=== PATIENT | female | born 1990 | race Caucasian/White ===

== ENCOUNTER 2016-12-07 22:40 | Emergency (ER) | payer SELFPAY | END 2016-12-07 23:30 | disposition left against medical advice (07) | LOC: DL.ED 22:40 | DX: Z53.21 Procedure and treatment not carried out due to patient leaving prior to being seen by health care provider (principal) ==

== ENCOUNTER 2017-01-18 01:50 | Emergency (ER) | payer SELFPAY ==
[2017-01-18 01:59] VITALS: BP 110/65
[2017-01-18] MEDS ORDERED: methylPREDNISolone Sodium Succinate 125 MG/2 ML SDV IM ONE (02:08)
[2017-01-18] MEDS ORDERED: diphenhydrAMINE 50 MG/ML SDV IM ONE (02:09)
--- NOTE | 2017-01-18 02:15 | EDM.PDOC ---
ED HPI GENERAL MEDICAL PROBLEM - General Chief Complaint: Allergic Reaction Stated Complaint: ALLERGIC REACTION Time Seen by Provider: 01/18/17 02:04 Source of Information: Reports: Patient History Limitations: Reports: No Limitations - History of Present Illness INITIAL COMMENTS - FREE TEXT/NARRATIVE: onset itchy hives yesterday took nothing and not going away. think got bit by something. 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: - Infectious Disease History Infectious Disease History: Reports: None - Past Surgical History Female Surgical History: Reports: Section, D&C Social & Family History - Family History Family Medical History: Noncontributory - Tobacco Use Smoking Status *Q: Current Every Day Smoker Years of Tobacco use: 8 Packs/Tins Daily: 0.5 Used Tobacco, but Quit: No Month Tobacco Last Used: january 2013 Second Hand Smoke Exposure: Yes - Caffeine Use Caffeine Use: Reports: Coffee, Energy Drinks, Soda - Alcohol Use Days Per Week of Alcohol Use: 7 Number of Drinks Per Day: 2 Total Drinks Per Week: 14 - Recreational Drug Use Recreational Drug Use: Yes Drug Use in Last 12 Months: Yes Recreational Drug Type: Reports: Marijuana/Hashish Recreational Drug Use Frequency: Rarely - Living Situation & Occupation Living situation: Reports: with Significant Other Occupation: Employed ED ROS ALLERGIC REACTION - Review of Systems Review Of Systems: ROS reveals no pertinent complaints other than HPI. ED EXAM GENERAL NO PERIP PULSE - Physical Exam Exam: See Below Exam Limited By: No Limitations General Appearance: Alert, WD/WN, Mild Distress, Other (itch) Ears: Hearing Grossly Normal Throat/Mouth: Normal Voice, No Airway Compromise Head: Atraumatic Neck: Non-Tender, Full Range of Motion Respiratory/Chest: No Respiratory Distress Cardiovascular: Regular Rate, Rhythm GI/Abdominal: Soft, Non-Tender Extremities: Other (right forearm several spots of hives without s/s cellulitis) Psychiatric: Normal Affect, Normal Mood Skin Exam: Warm, Dry, Normal Color Lymphatic: No Adenopathy Course - Vital Signs Last Recorded V/S: Last Vital Signs Temp 36.4 C 07/31/17 01:57 Pulse 97 01/18/17 01:57 Resp 20 01/18/17 01:57 BP 110/65 01/18/17 01:57 Pulse Ox 99 01/18/17 01:57 - Orders/Labs/Meds Orders: Active Orders 24 hr Category Date Time Status diphenhydrAMINE [Benadryl] Med 01/18/17 02:09 Once 50 mg IM ONETIME ONE Meds: Medications Discontinued Medications Generic Name Dose Route Start Last Admin Trade Name Isabel PRN Reason Stop Dose Admin Methylprednisolone Sodium Succinate 125 mg 01/18/17 02:08 Solu-Medrol IM 01/18/17 02:09 ONETIME ONE Departure - Departure Time of Disposition: 02:13 Disposition: Home, Self-Care 01 Condition: Good Clinical Impression: Hives of unknown origin - Discharge Information Instructions: Hives, [id number] Forms: ED Department Discharge Additional Instructions: 1) don't scratch 2) take benadyl 25mg twice daily for itchy hives 3) follow up at clinic for DERMATOLOGY REFERRAL if not better in 3 days rx given; medrol dospak - My Orders Last 24 Hours: My Active Orders 01/18/17 02:09 diphenhydrAMINE [Benadryl] 50 mg IM ONETIME ONE - Assessment/Plan Last 24 Hours: My Active Orders 01/18/17 02:09 diphenhydrAMINE [Benadryl] 50 mg IM ONETIME ONE
== END 2017-01-18 02:28 | disposition home or self-care (01) ==
LOC: DL.ED 01:50
DX: L50.9 Urticaria, unspecified (principal); F17.210 Nicotine dependence, cigarettes, uncomplicated; Z98.890 Other specified postprocedural states
CPT/HCPCS: 96372; 99282; J1200; J2930

== ENCOUNTER 2017-07-10 22:56 | Emergency (ER) | payer MEDICAID ==
[2017-07-10] MEDS ORDERED: Lidocaine 2% Viscous Solution 15 ML Cup PO ONE (22:57)
[2017-07-10] MEDS ORDERED: Nystatin Susp 100,000 Unit/ML 5 ML UD Cup PO ONE (22:57)
[2017-07-10 23:07] VITALS: BP 122/79
[2017-07-10] MEDS ORDERED: LORazepam 1 MG Tab PO ONE (23:46)
[2017-07-10] MEDS ORDERED: Nystatin Susp 100,000 Unit/ML 5 ML UD Cup ONE (23:51)
[2017-07-10] MEDS ORDERED: Lidocaine 2% Viscous Solution 15 ML Cup ONE (23:51)
--- NOTE | 2017-07-10 23:53 | EDM.PDOC ---
ED HPI GENERAL MEDICAL PROBLEM - General Chief Complaint: ENT Problem Stated Complaint: ROOF OF MOUTH PAIN [id number] Time Seen by Provider: 07/10/17 23:49 Source of Information: Reports: Patient History Limitations: Reports: No Limitations - History of Present Illness INITIAL COMMENTS - FREE TEXT/NARRATIVE: having dental work done and got placed on ABX just finished and now has painful lumps on roof of mouth Oral/Mouth Pain Score (Numeric/FACES): 10 - Related Data Allergies Allergy/AdvReac Type Severity Reaction Status Date / Time No Known Allergies Allergy Verified 07/10/17 23:02 Home Meds: Home Meds . 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 History: Reports: None Neurological History: Reports: None Psychiatric History: Reports: None Endocrine/Metabolic History: Reports: None Hematologic History: Reports: None Immunologic History: Reports: None Oncologic (Cancer) History: Reports: None Dermatologic History: Reports: None - Infectious Disease History Infectious Disease History: Reports: None - Past Surgical History Female Surgical History: Reports: Section, D&C Social & Family History - Family History Family Medical History: Noncontributory - Tobacco Use Smoking Status *Q: Heavy Tobacco Smoker Years of Tobacco use: 8 Packs/Tins Daily: 1 Used Tobacco, but Quit: No Month Tobacco Last Used: january 2013 Second Hand Smoke Exposure: Yes - Caffeine Use Caffeine Use: Reports: Coffee, Energy Drinks, Soda - Alcohol Use Days Per Week of Alcohol Use: 7 Number of Drinks Per Day: 2 Total Drinks Per Week: 14 - Recreational Drug Use Recreational Drug Use: Yes Drug Use in Last 12 Months: Yes Recreational Drug Type: Reports: Marijuana/Hashish Recreational Drug Use Frequency: Socially - Living Situation & Occupation Living situation: Reports: with Significant Other Occupation: Employed ED ROS ENT - Review of Systems Review Of Systems: ROS reveals no pertinent complaints other than HPI. ED EXAM, ENT - Physical Exam Exam: See Below Exam Limited By: No Limitations General Appearance: Alert, WD/WN, Mild Distress, Moderate Distress, Other ( tearful) Ears: Hearing Grossly Normal Mouth/Throat: Other (aphthous ulcers roof of mouth.) Head: Atraumatic Neck: Non-Tender, Full Range of Motion Respiratory/Chest: No Respiratory Distress Cardiovascular: Regular Rate, Rhythm GI/Abdominal: Soft, Non-Tender Neurological: Alert, Oriented, Normal Cognition, Normal Gait, No Motor/Sensory Deficits Psychiatric: Tearful Skin: Warm, Dry, Normal Color Lymphatic: No Adenopathy Course - Vital Signs Last Recorded V/S: Last Vital Signs Temp 36.4 C 07/10/17 23:02 Pulse 85 07/10/17 23:02 Resp 18 07/10/17 23:02 BP 122/79 07/10/17 23:02 Pulse Ox 100 07/10/17 23:02 - Orders/Labs/Meds Meds: Medications Discontinued Medications Generic Name Dose Route Start Last Admin Trade Name Freq PRN Reason Stop Dose Admin Lorazepam 1 mg 07/10/17 23:46 Ativan PO 07/10/17 23:47 ONETIME ONE Departure - Departure Time of Disposition: 23:51 Disposition: Home, Self-Care 01 Condition: Good Clinical Impression: Aphthous stomatitis - Discharge Information Instructions: Stomatitis, [id number] Additional Instructions: 1) soft diet 2) recheck as needed rx togo; lido viscous apply with Q-tip rx given; nystatin 5ml swish tid x 5 days
== END 2017-07-10 23:59 | disposition home or self-care (01) ==
LOC: DL.ED 22:56
DX: K12.0 Recurrent oral aphthae (principal); F17.210 Nicotine dependence, cigarettes, uncomplicated
CPT/HCPCS: 99283; A9270

== ENCOUNTER 2017-12-13 10:15 | Emergency (ER) | payer MEDICAID ==
[2017-12-13 10:45] VITALS: BP 119/71
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
== END 2017-12-13 11:17 | disposition home or self-care (01) ==
LOC: DL.ED 10:15
DX: L55.1 Sunburn of second degree (principal); F17.210 Nicotine dependence, cigarettes, uncomplicated
CPT/HCPCS: 99282

== ENCOUNTER 2018-07-13 11:22 | Emergency (ER) | payer MEDICAID ==
[2018-07-13 11:29] VITALS: BP 121/71
== END 2018-07-13 11:39 | disposition left against medical advice (07) ==
LOC: DL.ED 11:22
DX: Z53.21 Procedure and treatment not carried out due to patient leaving prior to being seen by health care provider (principal)

== ENCOUNTER 2018-09-23 14:26 | Emergency (ER) | payer BC, MEDICAID ==
[2018-09-23 14:33] VITALS: BP 122/75
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
== END 2018-09-23 15:36 | disposition home or self-care (01) ==
LOC: DL.ED 14:26
DX: S63.642A Sprain of metacarpophalangeal joint of left thumb, initial encounter (principal); Y04.2XXA Assault by strike against or bumped into by another person, initial encounter; Z88.2 Allergy status to sulfonamides; Z88.6 Allergy status to analgesic agent
CPT/HCPCS: 73130-LT; 99283-25

== ENCOUNTER 2020-08-12 09:11 | Emergency (ER) | payer MEDICAID | END 2020-08-12 09:42 | disposition left against medical advice (07) | LOC: DL.ED 09:11 | DX: Z53.21 Procedure and treatment not carried out due to patient leaving prior to being seen by health care provider (principal) ==

== ENCOUNTER 2021-04-11 19:53 | Emergency (ER) | payer SELFPAY ==
--- NOTE | 2021-04-11 21:38 | EDM.PDOC ---
ED HPI GENERAL MEDICAL PROBLEM - General Chief Complaint: Respiratory Problem Stated Complaint: 97.1*, COUGHING UP BLOOD, CONGESTED, THROAT HURTS. Time Seen by Provider: 04/11/21 20:15 Source of Information: Reports: Patient History Limitations: Reports: No Limitations - History of Present Illness INITIAL COMMENTS - FREE TEXT/NARRATIVE: ED with hx congestion and cough x 5 days, no fever, tonight coughing episode and coughed up large amount that had some blood streaks. No shortness of breath, no loss of taste or smell. 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 Anterior Chest Pain Score (Numeric/FACES): 1 - Related Data Allergies Allergy/AdvReac Type Severity Reaction Status Date / Time hydrocodone Allergy Itching Verified 01/28/19 01:11 sulfamethoxazole Allergy Nausea and Verified 01/28/19 01:11 [From Bactrim] Vomiting trimethoprim [From Bactrim] Allergy Nausea and Verified 01/28/19 01:11 Vomiting Home Meds: Home Meds Ibuprofen 800 mg PO ATDISCHARGE PRN 09/23/18 [History] metFORMIN HCl [Metformin HCl] 1,000 mg PO DAILY 09/23/18 [History] Past Medical History - Past Health History Medical/Surgical History: Denies Medical/Surgical History HEENT History: Reports: None Cardiovascular History: Reports: None Respiratory History: Reports: None Gastrointestinal History: Reports: None Genitourinary History: Reports: None 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: Reports: None Neurological History: Reports: Migraines Other Neuro History: recent migraine within past 4 days Psychiatric History: Reports: None Endocrine/Metabolic History: Reports: None Hematologic History: Reports: None Immunologic History: Reports: None Oncologic (Cancer) History: Reports: None Dermatologic History: Reports: None, Other (See Below) Other Dermatologic History: abcess on buttock - Infectious Disease History Infectious Disease History: Reports: None - Past Surgical History HEENT Surgical History: Reports: Oral Surgery Other HEENT Surgeries/Procedures: wisdom teeth removal 6 months Cardiovascular Surgical History: Reports: None Female Surgical History: Reports: Section, D&C Other Female Surgeries/Procedures: Taking fertility treatments Musculoskeletal Surgical History: Reports: None Social & Family History - Family History Family Medical History: No Pertinent Family History - Tobacco Use Tobacco Use Status *Q: Current Every Day Tobacco User Years of Tobacco use: 22 Packs/Tins Daily: 0.5 - Caffeine Use Caffeine Use: Reports: Energy Drinks, Soda Other Caffeine Use: 2-3 daily of both - Recreational Drug Use Recreational Drug Use: No - Living Situation & Occupation Living situation: Reports: with Significant Other Occupation: Employed ED ROS GENERAL - Review of Systems Review Of Systems: Comprehensive ROS is negative, except as noted in HPI. ED EXAM, GENERAL - Physical Exam Exam: See Below Exam Limited By: No Limitations General Appearance: Alert, No Apparent Distress Eye Exam: Bilateral Eye: EOMI, PERRL Ears: Normal External Exam, Hearing Grossly Normal, Normal TMs Nose: Normal Inspection Throat/Mouth: Normal Inspection Head: Atraumatic, Normocephalic Neck: Normal Inspection Respiratory/Chest: No Respiratory Distress, Lungs Clear Cardiovascular: Normal Peripheral Pulses, Regular Rate, Rhythm GI/Abdominal: Normal Bowel Sounds, Soft Extremities: Normal Inspection Neurological: Alert, Oriented Psychiatric: Normal Affect Skin Exam: Warm, Dry, Intact, Normal Color Course - Vital Signs Last Recorded V/S: Last Vital Signs Temp 96.8 F L 04/11/21 21:45 Pulse 72 04/11/21 21:45 Resp 14 04/11/21 21:45 BP 112/72 04/11/21 21:45 Pulse Ox 98 04/11/21 21:45 - Orders/Labs/Meds Labs: Laboratory Tests 04/11/21 Range/Units 20:07 SARS-CoV-2 RNA (HARIKA) Negative (NEGATIVE) Departure - Departure Time of Disposition: 21:35 Disposition: Home, Self-Care 01 Condition: Good Clinical Impression: URI (upper respiratory infection) Qualifiers: URI type: unspecified viral URI Qualified Code(s): J06.9 - Acute upper respiratory infection, unspecified - Discharge Information *PRESCRIPTION DRUG MONITORING PROGRAM REVIEWED*: No *COPY OF PRESCRIPTION DRUG MONITORING REPORT IN PATIENT KATHY: No Instructions: Viral Respiratory Infection, [id number], Acute Bronchitis, Adult, [id number] Referrals: Coby Courtney MD [Primary Care Provider] - Forms: ED Department Discharge Additional Instructions: increase fluids tylenol or ibuprofen , may alternate every 4 hours as needed for fever/ discomfort rest humidifier follow up next week if symptoms worsen or not improving muccinex/robitussin to thin mucus per label instructions Sepsis Event Note (ED) - Evaluation Sepsis Screening Result: No Definite Risk
[2021-04-11 21:46] VITALS: BP 112/72; PULSE 72
== END 2021-04-11 21:46 | disposition home or self-care (01) ==
LOC: DL.ED 19:53
DX: J06.9 Acute upper respiratory infection, unspecified (principal); Z88.5 Allergy status to narcotic agent; Z88.2 Allergy status to sulfonamides; Z72.0 Tobacco use; Z20.822 Contact with and (suspected) exposure to COVID-19
CPT/HCPCS: 87081; 87430; 99283; U0002

== ENCOUNTER 2023-08-05 15:56 | Emergency (ER) | payer MEDICAID | END 2023-08-05 18:30 | LOC: DL.ED 15:56 | DX: Z53.21 Procedure and treatment not carried out due to patient leaving prior to being seen by health care provider (principal) | CPT/HCPCS: 76815 ==

== ENCOUNTER 2024-02-03 09:44 | Inpatient (IN) | payer MEDICAID ==
[2024-02-03] MEDS ORDERED: Tranexamic Acid 1,000 MG in Sodium Chloride 0.9% 100 ML IV PRN (10:00)
[2024-02-03] MEDS ORDERED: Methylergonovine 0.2 MG/1 ML Amp IM PRN (10:00)
[2024-02-03] MEDS ORDERED: Carboprost Tromethamine 250 MCG/1 ML Amp IM PRN (10:00)
[2024-02-03] MEDS ORDERED: Misoprostol 400 MCG (4 X 100 MCG TAB) RECTAL PRN (10:00)
[2024-02-03] MEDS ORDERED: ceFAZolin 2 GM Vial IVPUSH ONE (10:00)
[2024-02-03] MEDS ORDERED: ePHEDrine 50 MG/ML SDV IVPUSH PRN (10:00)
[2024-02-03] MEDS ORDERED: Naloxone 2 MG/2 ML Syringe IVPUSH PRN (10:00)
[2024-02-03] MEDS ORDERED: diphenhydrAMINE 50 MG/ML SDV IVPUSH PRN (10:00)
[2024-02-03] MEDS ORDERED: Ondansetron 4 MG/2 ML SDV IVPUSH PRN (10:00)
[2024-02-03 10:17] LABS: HEMATOCRIT 36.8 % (37.0-47.0); HEMOGLOBIN 12.4 g/dL (12.0-16.0); MEAN CORPUSCULAR HEMOGLOBIN 29.3 pg (27.0-34.0); MEAN CORPUSCULAR HGB CONC 33.7 g/dL (33.0-35.0); RED BLOOD CELL COUNT 4.23 10^6/uL (4.2-5.4); WHITE BLOOD CELL COUNT,WBC 12.4 10^3/uL (5.0-10.0)
[2024-02-03] MEDS: Lactated Ringers 1,000 ML IV SCH (10:51)
[2024-02-03] MEDS ORDERED: ceFAZolin 2 GM Vial ONE (11:26)
[2024-02-03] MEDS ORDERED: Dexamethasone 4 MG/ML SDV ONE (11:26)
[2024-02-03] MEDS ORDERED: Ondansetron 4 MG/2 ML SDV ONE (11:26)
[2024-02-03] MEDS ORDERED: Succinylcholine 200 MG/10 ML MDV ONE (11:26)
[2024-02-03] MEDS ORDERED: Oxytocin 10 Units/1 ML SDV ONE (11:26)
[2024-02-03] MEDS: Oxytocin/Normal Saline 30 UNIT/500 ML BAG IV SCH (12:50)
[2024-02-03] MEDS: Simethicone 80 MG Tab.Chew PO SCH (15:11)
[2024-02-03] MEDS: Prenatal Multivitamin with Calcium/Folic Acid/Iron Tab PO SCH (15:11)
[2024-02-03] MEDS: Clindamycin in 0.9 % Sod Chlor 900 MG in Premix Bag 1 BAG IV SCH (16:11)
[2024-02-03] MEDS: Metoclopramide 10 MG/2 ML SDV IVPUSH ONE (17:21)
[2024-02-03] MEDS: Simethicone 80 MG Tab.Chew ONE (17:26)
[2024-02-03] MEDS: Ketorolac 30 MG/ML SDV IVPUSH SCH (18:15)
[2024-02-03] MEDS: Acetaminophen 325 MG Tab PO PRN (22:32)
[2024-02-04] MEDS: Promethazine 25 MG/ML SDV IM PRN (00:55)
[2024-02-04 07:18] LABS: HEMATOCRIT 30.3 % (37.0-47.0); MEAN CORPUSCULAR HEMOGLOBIN 29.6 pg (27.0-34.0); MEAN CORPUSCULAR VOLUME 89.6 fL (80-100); RED BLOOD CELL COUNT 3.38 10^6/uL (4.2-5.4); WHITE BLOOD CELL COUNT,WBC 14.6 10^3/uL (5.0-10.0)
[2024-02-04] MEDS: Docusate Sodium 100 MG Cap PO PRN (08:43)
[2024-02-04] MEDS ORDERED: Carboprost Tromethamine 250 MCG/1 ML Amp IM PRN (11:30)
[2024-02-04] MEDS: Docusate Sodium 100 MG Cap ONE (11:31)
[2024-02-04] MEDS ORDERED: diphenhydrAMINE 50 MG/ML SDV IVPUSH PRN (11:31)
[2024-02-04] MEDS: Simethicone 80 MG Tab.Chew ONE (11:31)
[2024-02-04] MEDS ORDERED: Methylergonovine 0.2 MG/1 ML Amp IM PRN (11:32)
[2024-02-04] MEDS ORDERED: ePHEDrine 50 MG/ML SDV IVPUSH PRN (11:32)
[2024-02-04] MEDS ORDERED: Misoprostol 400 MCG (4 X 100 MCG TAB) RECTAL PRN (11:32)
[2024-02-04] MEDS ORDERED: Naloxone 2 MG/2 ML Syringe IVPUSH PRN (11:33)
[2024-02-04] MEDS ORDERED: Ondansetron 4 MG/2 ML SDV IVPUSH PRN (11:33)
[2024-02-04] MEDS ORDERED: Promethazine 25 MG/ML SDV IM PRN (11:34)
[2024-02-04] MEDS ORDERED: Tranexamic Acid 1,000 MG in Sodium Chloride 0.9% 100 ML IV PRN (11:34)
[2024-02-04] MEDS ORDERED: Oxytocin/Normal Saline 30 UNIT/500 ML BAG IV SCH (11:45)
[2024-02-04] MEDS ORDERED: Lactated Ringers 1,000 ML IV SCH (11:45)
[2024-02-04] MEDS: Acetaminophen/oxyCODONE 325-5 MG Tab PO PRN ×2 (11:50→15:47)
[2024-02-04] MEDS: Simethicone 80 MG Tab.Chew PO SCH (11:50)
[2024-02-04] MEDS: Ibuprofen 800 MG Tab PO SCH (15:18)
[2024-02-04] MEDS: Acetaminophen 325 MG Tab PO PRN (20:02)
[2024-02-04] MEDS: Lidocaine 1% 30 ML SDV INJECT ONE (21:43)
[2024-02-05] MEDS: Docusate Sodium 100 MG Cap PO PRN (08:04)
[2024-02-05] MEDS ORDERED: Prenatal Multivitamin with Calcium/Folic Acid/Iron Tab PO SCH (09:00)
[2024-02-05 09:51] VITALS: BP 97/53; PULSE 64
[2024-02-05] MEDS ORDERED: Dexamethasone 4 MG/ML SDV IV ONE (11:04)
[2024-02-05] MEDS ORDERED: Morphine PF 10 MG/10 ML SDV EPIDUR ONE (11:04)
[2024-02-05] MEDS ORDERED: Ondansetron 4 MG/2 ML SDV IV ONE (11:04)
[2024-02-05] MEDS ORDERED: Ketorolac 30 MG/ML SDV IVPUSH ONE (11:04)
[2024-02-05] MEDS ORDERED: Ropivacaine 100 ML EPIDUR ONE (11:04)
[2024-02-05] MEDS ORDERED: Oxytocin/Normal Saline 30 UNIT/500 ML BAG IV ONE (11:04)
[2024-02-05] MEDS ORDERED: Midazolam 1 MG/ML 2 ML SDV IV ONE (11:04)
== END 2024-02-05 11:05 | disposition home or self-care (01) | DRG 788 ==
LOC: DL.OB 09:44 → OBSVTOIN 12:22 → DL.OB 12:22
PROVIDERS: ADMIT Family Medicine; ATTEND Family Medicine
PROC: 10D00Z1 Extraction of Products of Conception, Low, Open Approach (ICD-10-PCS; principal; 2024-02-03 12:00)
DX: O34.211 Maternal care for low transverse scar from previous cesarean delivery (principal); Z37.0 Single live birth; Z3A.39 39 weeks gestation of pregnancy; O99.62 Diseases of the digestive system complicating childbirth; K04.7 Periapical abscess without sinus; O69.81X0 Labor and delivery complicated by cord around neck, without compression, not applicable or unspecified
CPT/HCPCS: 36415; 59025; 85027; 86850; 86900; 86901; A9270-GY; J0330; J1100; J1885; J2250; J2270; J2405; J2550; J2590; J2765; J2795; J3490; J7120

== ENCOUNTER 2024-12-09 22:54 | Inpatient (IN) | payer MEDICAID ==
[2024-12-09] MEDS: Lactated Ringers 1,000 ML IV SCH (23:45)
[2024-12-09 23:48] LABS: BASOPHILS PERCENT AUTO 0.2 % (0.0-1.0); EOSINOPHILS PERCENT AUTO 0.4 % (1.0-3.0); HEMATOCRIT 34.4 % (37.0-47.0); HEMOGLOBIN 12.3 g/dL (12.0-16.0); LYMPHOCYTES PERCENT AUTO 14.5 % (20.5-50.1); MEAN CORPUSCULAR HEMOGLOBIN 29.9 pg (27.0-34.0); MEAN CORPUSCULAR HGB CONC 35.8 g/dL (33.0-35.0); MEAN CORPUSCULAR VOLUME 83.5 fL (80-100); MONOCYTES PERCENT AUTO 6.2 % (2-8); NEUTROPHILS PERCENT AUTO 78.7 % (42.2-75.2); PLATELET COUNT,PLT 190 10^3/uL (150-450); RED BLOOD CELL COUNT 4.12 10^6/uL (4.2-5.4); WHITE BLOOD CELL COUNT,WBC 12.1 10^3/uL (5.0-10.0)
[2024-12-10] MEDS ORDERED: Lactated Ringers 1,000 ML IV SCH
[2024-12-10] MEDS ORDERED: Oxytocin/Normal Saline 30 UNIT/500 ML BAG IV SCH
[2024-12-10] MEDS ORDERED: Carboprost Tromethamine 250 MCG/1 ML Amp IM PRN
[2024-12-10] MEDS ORDERED: ePHEDrine 50 MG/ML SDV IVPUSH PRN
[2024-12-10] MEDS ORDERED: Methylergonovine 0.2 MG/1 ML Amp IM PRN
[2024-12-10] MEDS ORDERED: Ondansetron 4 MG/2 ML SDV IVPUSH PRN
[2024-12-10] MEDS ORDERED: Docusate Sodium 100 MG Cap PO PRN
[2024-12-10] MEDS ORDERED: Misoprostol 100 MCG Tab RECTAL PRN
[2024-12-10] MEDS ORDERED: diphenhydrAMINE 50 MG/ML SDV IVPUSH PRN
[2024-12-10] MEDS ORDERED: Tranexamic Acid 1,000 MG in Sodium Chloride 0.9% 100 ML IV PRN
[2024-12-10] MEDS ORDERED: Naloxone 2 MG/2 ML Syringe IVPUSH PRN
[2024-12-10 00:08] LABS: ALANINE AMINOTRANSFERASE,ALT 13 U/L (14-59); ALBUMIN 2.3 g/dL (3.4-5.0); ALKALINE PHOSPHATASE 113 U/L (46-116); ANION GAP 15.7 mEq/L (7-13); ASPARTATE AMNIOTRANSFERASE,AST 14 U/L (15-37); BILIRUBIN TOTAL 0.3 mg/dL (0.2-1.0); BLOOD UREA NITROGEN,BUN 11 mg/dL (7-18); BUN/CREATININE RATIO 14.5 (No establ ref range); CALCIUM 9.3 mg/dL (8.5-10.1); CARBON DIOXIDE,CO2 22 mmol/L (21-32); CHLORIDE,CL 106 mmol/L (98-107); CREATININE 0.76 mg/dL (0.55-1.02); GLUCOSE RANDOM 76 mg/dL (70-99); LIPASE 51 U/L (16-77); POTASSIUM,K 3.7 mmol/L (3.5-5.1); PROTEIN TOTAL,TP 6.5 g/dL (6.4-8.2); SODIUM,NA 140 mmol/L (136-145)
[2024-12-10 00:10] LABS: A/G RATIO 0.55; ESTIMATED GFR 105 mL/min (>=60)
[2024-12-10] MEDS ORDERED: Bupivacaine 0.25% 10 ML SDV ONE (00:26)
[2024-12-10] MEDS ORDERED: Phenylephrine 1% 10 MG/ML SDV ONE (00:33)
[2024-12-10] MEDS ORDERED: Sodium Chloride 0.9% 100 ML ONE (00:33)
[2024-12-10] MEDS ORDERED: Oxytocin/Normal Saline 30 UNIT/500 ML BAG ONE (00:35)
[2024-12-10] MEDS: ceFAZolin 2 GM Vial IVPUSH ONE (02:52)
[2024-12-10] MEDS: Ketorolac 30 MG/ML SDV IVPUSH SCH ×2 (03:09→07:56)
[2024-12-10 06:36] LABS: APPEARANCE,URINE SLIGHTLY CLOUDY (CLEAR); BILIRUBIN,URINE NEGATIVE (NEGATIVE); COLOR,URINE YELLOW (YELLOW); GLUCOSE,URINE NEGATIVE (NEGATIVE); KETONES,URINE 15 (NEGATIVE); LEUKOCYTE ESTERASE,URINE NEGATIVE (NEGATIVE); NITRITE,URINE NEGATIVE (NEGATIVE); OCCULT BLOOD,URINE MODERATE (NEGATIVE); PH,URINE 6.5 (5.0-9.0); PROTEIN,URINE 30 (NEGATIVE); UROBILINOGEN,URINE 0.2 mg/dL (0.2-1.0)
[2024-12-10 06:53] LABS: BACTERIA,URINE FEW /HPF (0-FEW/HPF); EPITHELIAL CELLS,URINE FEW /HPF (NOT SEEN); MUCUS,URINE MODERATE /LPF (NOT SEEN); RBC,URINE 75-100 /HPF (0-5); WBC,URINE 0-5 /HPF (0-5/HPF)
[2024-12-10] MEDS: Acetaminophen/oxyCODONE 325-5 MG Tab PO PRN ×2 (07:57→11:53)
[2024-12-10] MEDS: Simethicone 80 MG Tab.Chew PO SCH (08:03)
[2024-12-10] MEDS: Prenatal Multivitamin with Calcium/Folic Acid/Iron Tab PO SCH (08:03)
[2024-12-10] MEDS ORDERED: dexmedeTOMIDine HCl 200 MCG/2 ML SDV ONE (08:33)
[2024-12-10 08:47] LABS: HEMATOCRIT 32.4 % (37.0-47.0); HEMOGLOBIN 10.6 g/dL (12.0-16.0); MEAN CORPUSCULAR HEMOGLOBIN 27.6 pg (27.0-34.0); MEAN CORPUSCULAR HGB CONC 32.7 g/dL (33.0-35.0); MEAN CORPUSCULAR VOLUME 84.4 fL (80-100); RED BLOOD CELL COUNT 3.84 10^6/uL (4.2-5.4); WHITE BLOOD CELL COUNT,WBC 13.2 10^3/uL (5.0-10.0)
[2024-12-10] MEDS ORDERED: Ketorolac 30 MG/ML SDV IVPUSH SCH (09:00)
[2024-12-11] MEDS ORDERED: Lidocaine 2% 20 ML MDV ONE (06:14)
[2024-12-11] MEDS: Ibuprofen 800 MG Tab PO PRN (09:08)
[2024-12-12] MEDS: Acetaminophen 325 MG Tab PO PRN (06:13)
[2024-12-12 08:57] VITALS: BP 115/63; PULSE 68
== END 2024-12-12 08:05 | disposition home or self-care (01) | DRG 788 ==
LOC: DL.OBCHECK 22:54 → DL.OB 12-10 00:01 → OBSVTOIN 12-10 01:14
PROVIDERS: ADMIT Family Medicine; ATTEND Family Medicine
PROC: 10D00Z1 Extraction of Products of Conception, Low, Open Approach (ICD-10-PCS; principal; 2024-12-10 00:15)
DX: O34.211 Maternal care for low transverse scar from previous cesarean delivery (principal); Z3A.37 37 weeks gestation of pregnancy; Z37.0 Single live birth
CPT/HCPCS: 36415; 59025; 80053; 81001; 83690; 84112; 85025; 85027; 86850; 86900; 86901; 87210; 94010; A9270-GY; J1885; J7120

== ENCOUNTER 2024-12-22 23:48 | Emergency (ER) | payer MEDICAID ==
[2024-12-23 00:31] VITALS: BP 118/82; PULSE 113
[2024-12-23] MEDS: Bacitracin Oint 1 GM U/D Packet TOP ONE (01:47)
== END 2024-12-23 01:45 | disposition left against medical advice (07) ==
LOC: DL.ED 23:48
DX: O90.89 Other complications of the puerperium, not elsewhere classified (principal); F10.920 Alcohol use, unspecified with intoxication, uncomplicated; R10.84 Generalized abdominal pain; Z88.5 Allergy status to narcotic agent; Z88.8 Allergy status to other drugs, medicaments and biological substances; Z79.899 Other long term (current) drug therapy; Y90.9 Presence of alcohol in blood, level not specified; Y09 Assault by unspecified means
CPT/HCPCS: 99283; 99284

== ENCOUNTER 2025-03-01 17:50 | Emergency (ER) | payer MEDICAID ==
[2025-03-01 18:46] VITALS: BP 140/81; PULSE 87
== END 2025-03-01 18:28 | disposition home or self-care (01) ==
LOC: DL.ED 17:50
DX: T63.441A Toxic effect of venom of bees, accidental (unintentional), initial encounter (principal); Z88.5 Allergy status to narcotic agent; Z88.2 Allergy status to sulfonamides; Z79.899 Other long term (current) drug therapy
CPT/HCPCS: 99283; J8540